=== PATIENT | male | born 1945 | race Caucasian/White ===

== ENCOUNTER 2017-04-22 05:44 | Day surgery (SDC) | payer OTHER, BC ==
[~2017-04-22] VITALS: Ht 160 cm; Wt 73.5 kg
[~2017-04-22 05:44] MED LIST: AMLODIPINE BESY10 MG PO; ATORVASTATIN CA40 MG PO; AZITHROMYCIN500 M1 PO; CALCITRIOL0.25 MCG PO; CARVEDILOL12.5 MG PO; COREG12.5 M1 PO; DIVALPROEX SOD500 MG PO; HUMALOG MI100 UNIT/5 SQ; JANUVIA100 MG; KLONOPIN0.5 M1 PO; LANTUS 10100 UNITS/ SC; LANTUS 3 M100 UNITS1 SC; LASIX20 MG PO; LASIX40 MG PO; LEVEMIR FL100 UNIT/1 SC; LEVOTHYROXINE25 MCG PO; LIPITOR20 MG PO; LIPITOR40 MG; LIPITOR40 MG PO; LISINOPRIL30 MG PO; LISINOPRIL5 MG; LORAZEPAM0.5 MG PO; LOW DOSE ASPIRI81 M1 PO; NEPHRO-VITE,1 TABLET PO; NORVASC5 MG PO; NOVOLOG 10100 UNITS/ SC; NOVOLOG PE100 UNITS/ SC; PROAIR HFA8.5 GM IH; STOOL SOFTENER100 MG PO; ULTRAM50 MG PO; VITAMIN D-32000 UNI1 PO; VITAMIN D32000 UNIT PO; ZESTRIL40 MG PO
[2017-04-22 07:58] LABS: POINT-OF-CARE METER ID UU13113696
[2017-04-22 09:09] LABS: METH RESISTANT S AUREUS PCR NEGATIVE (NEGATIVE)
[2017-04-22 09:11] LABS: PROBE CHECK PASS; SPECIMEN PROCESSING CONTROL PASS
== END 2017-04-22 10:10 | disposition home or self-care (01) ==
LOC: CATH 05:44
PROVIDERS: Surgery
DX: T82.858A Stenosis of other vascular prosthetic devices, implants and grafts, initial encounter (principal); Z79.82 Long term (current) use of aspirin; I12.0 Hypertensive chronic kidney disease with stage 5 chronic kidney disease or end stage renal disease; N18.6 End stage renal disease; Z99.2 Dependence on renal dialysis; E78.00 Pure hypercholesterolemia, unspecified; M19.90 Unspecified osteoarthritis, unspecified site
CPT/HCPCS: 82948; 87641; C1725; C1769; C1894; J1644; J2250; J3010

== ENCOUNTER 2018-02-05 16:28 | Inpatient (IN) | payer OTHER, BC ==
[~2018-02-05] VITALS: Ht 162.6 cm; Wt 78.8 kg
[2018-02-05 16:40] LABS: COMMENTS - BLOOD GASES A+C+; DEVICE MASK VENT; FI02 100 %; PRES. SUPPORT 15 CM/H2O; SITE RR; TOTAL RESP RATE 55 resp/min
[2018-02-05 16:41] LABS: PEEP 7 CM/H20
[2018-02-05 16:42] LABS: BASE EXCESS 1.5 mEq/L (-3 to +3); BICARBONATE 25.9 mEq/L (22-26); CARBOXY HGB 1.6 % (0-5); METHEMOGLOBIN 0.9 % (0-1.5); PCO2 39 mm Hg (35-45); PO2 460 mm Hg (80-100); pH 7.43 (7.35-7.45)
[2018-02-05 17:22] LABS: HEMATOCRIT 30.9 % (38.0-50.0); HEMOGLOBIN 10.2 G/DL (12.5-16.6); MCH 31.5 PG (29.0-34.0); MCV 95.4 FL (86-99); PLATELET COUNT 347 K/uL (156-360); RBC DIS.WIDTH-CV 15.8 % (11.8-14.6); RBC DIS.WIDTH-SD 55.4 % (39-53); RED BLOOD COUNT 3.24 M/uL (4.00-5.50); WHITE BLOOD COUNT 17.6 K/uL (4.1-10.2)
[2018-02-05 17:31] LABS: INTER. NORMALIZED RATIO 1.2
[2018-02-05 17:34] LABS: PTT 24.8 SEC (25-37)
[2018-02-05 17:36] LABS: ALBUMIN 3.7 g/dL (3.2-4.8); CHLORIDE 98 mEq/L (99-109); POTASSIUM 4.7 mEq/L (3.7-5.4); SODIUM 142 mEq/L (136-147)
[2018-02-05 17:38] LABS: GLUCOSE 273 mg/dL (70-99); TOTAL PROTEIN 7.4 g/dL (6.4-8.3)
[2018-02-05 17:40] LABS: TOTAL BILIRUBIN 0.6 mg/dL (0.0-1.0)
[2018-02-05 17:42] LABS: ALKALINE PHOSPHATASE 85 IU/L (3-129); GFR ESTIMATE (CALCULATED) 22 mL/min/ (58.99-99999)
[2018-02-05 17:43] LABS: UREA NITROGEN (BUN) 15 mg/dL (9-23)
[2018-02-05 17:44] LABS: AST (GOT) 20 IU/L (2-34)
[2018-02-05 17:45] LABS: ALT (GPT) 13 IU/L (3-49); TROP-I INTERPRETATION NEGATIVE; TROPONIN-I 0.03 ng/mL (0.0-0.30)
[2018-02-05 18:21] LABS: VALPROIC ACID (DEPAKOTE) 14.4 MCG/ML (50-100)
[2018-02-05] MEDS ORDERED: RENVELA800 MG PO (19:07)
[2018-02-05] MEDS ORDERED: LEVEMIR FL100 UNIT/1 SC ×2 (19:08→19:10)
[2018-02-05] MEDS ORDERED: FUROSEMIDE40 MG PO (19:08)
[2018-02-05 21:00] VITALS: BP 116/78
[2018-02-05 21:01] VITALS: BP 129/70
[2018-02-05 22:00] VITALS: BP 100/60
[2018-02-05 23:00] VITALS: BP 136/61
[2018-02-06] VITALS (24 sets, daily range): BP systolic 84–151; BP diastolic 42–75
[2018-02-06 11:30] LABS: HEMATOCRIT 24.2 % (38.0-50.0); HEMOGLOBIN 7.9 G/DL (12.5-16.6); MCH 31.3 PG (29.0-34.0); MCHC 32.6 G/DL (30.0-36.0); RBC DIS.WIDTH-CV 16.2 % (11.8-14.6); RBC DIS.WIDTH-SD 57.3 % (39-53); RED BLOOD COUNT 2.52 M/uL (4.00-5.50); WHITE BLOOD COUNT 13.3 K/uL (4.1-10.2)
[2018-02-06 11:31] LABS: PLATELET COUNT 218 K/uL (156-360)
[2018-02-06 11:34] LABS: CHLORIDE 103 mEq/L (99-109); POTASSIUM 5.5 mEq/L (3.7-5.4); SODIUM 144 mEq/L (136-147)
[2018-02-06 11:36] LABS: GLUCOSE 154 mg/dL (70-99)
[2018-02-06 11:45] LABS: GFR ESTIMATE (CALCULATED) 12 mL/min/ (58.99-99999); UREA NITROGEN (BUN) 36 mg/dL (9-23)
[2018-02-06 14:52] LABS: INTER. NORMALIZED RATIO 1.4
[2018-02-06 14:55] LABS: PTT 28.2 SEC (25-37)
[2018-02-07] VITALS (24 sets, daily range): BP systolic 86–137; BP diastolic 44–74
[2018-02-07 03:00] LABS: HEMATOCRIT 24.9 % (38.0-50.0); HEMOGLOBIN 7.9 G/DL (12.5-16.6); MCH 30.7 PG (29.0-34.0); MCHC 31.7 G/DL (30.0-36.0); MCV 96.9 FL (86-99); PLATELET COUNT 259 K/uL (156-360); RBC DIS.WIDTH-CV 16.2 % (11.8-14.6); RBC DIS.WIDTH-SD 57.7 % (39-53); RED BLOOD COUNT 2.57 M/uL (4.00-5.50); WHITE BLOOD COUNT 12.9 K/uL (4.1-10.2)
[2018-02-07 03:26] LABS: CHLORIDE 104 mEq/L (99-109); POTASSIUM 5.9 mEq/L (3.7-5.4); SODIUM 144 mEq/L (136-147)
[2018-02-07 03:27] LABS: GLUCOSE 179 mg/dL (70-99)
[2018-02-07 03:31] LABS: GFR ESTIMATE (CALCULATED) 9 mL/min/ (58.99-99999)
[2018-02-07 03:32] LABS: UREA NITROGEN (BUN) 52 mg/dL (9-23)
[2018-02-07 03:33] LABS: CREATININE 6.3 mg/dL (0.6-1.3)
[2018-02-08] VITALS (21 sets, daily range): BP systolic 82–166; BP diastolic 44–80
[2018-02-08 14:31] LABS: BASE EXCESS 6.5 mEq/L (-3 to +3); BICARBONATE 31.8 mEq/L (22-26); CARBOXY HGB 0.9 % (0-5); COMMENTS - BLOOD GASES A+C+; DEVICE N/V VENT; METHEMOGLOBIN 0.8 % (0-1.5); PCO2 49 mm Hg (35-45); PO2 116 mm Hg (80-100); SITE RR; pH 7.42 (7.35-7.45)
[2018-02-08 14:32] LABS: FI02 80 %; MECHANICAL RATE 6 resp/min; MODE N/V SIMV; PEEP 5 CM/H20; PRES. SUPPORT 22 CM/H2O; TIDAL VOLUME 450 ML; TOTAL RESP RATE 40 resp/min
[2018-02-09] VITALS (19 sets, daily range): BP systolic 94–121; BP diastolic 50–72
[2018-02-09 05:23] LABS: BASOPHIL (%) 0.5 % (0-1); BASOPHIL COUNT 0.1 K/uL (0-0.1); EOSINOPHIL (%) 0.2 % (0-5); HEMATOCRIT 23.2 % (38.0-50.0); HEMOGLOBIN 7.4 G/DL (12.5-16.6); IMMATURE GRANULOCYTE (%) 0.9 % (0.0-0.7); LYMPHOCYTE (%) 8.8 % (15-42); LYMPHOCYTE COUNT 0.9 K/uL (1.0-2.8); MCH 30.3 PG (29.0-34.0); MCHC 31.9 G/DL (30.0-36.0); MCV 95.1 FL (86-99); MONOCYTE (%) 10.4 % (3-12); NEUTROPHIL (%) 79.2 % (45-76); NEUTROPHIL COUNT 7.6 K/uL (1.8-6.4); PLATELET COUNT 295 K/uL (156-360); RBC DIS.WIDTH-CV 16.1 % (11.8-14.6); RBC DIS.WIDTH-SD 56.2 % (39-53); RED BLOOD COUNT 2.44 M/uL (4.00-5.50); WHITE BLOOD COUNT 9.6 K/uL (4.1-10.2)
[2018-02-09 05:54] LABS: CHLORIDE 94 MEQ/L (99-109); CREATININE 5.5 MG/DL (0.6-1.3); GFR ESTIMATE (CALCULATED) 11 mL/min/ (58.99-99999); GLUCOSE 259 mg/dL (70-99); SODIUM 141 MEQ/L (136-147); UREA NITROGEN (BUN) 42 mg/dL (9-23)
[2018-02-09 06:20] LABS: POTASSIUM 4.4 MEQ/L (3.7-5.4)
[2018-02-09 10:29] LABS: HEPATITIS B SURFACE ANTIGEN Nonreactive
== END 2018-02-10 00:05 | DRG 871 ==
LOC: EME 16:28 → 4WEST 18:51 → EDOF 18:51 → ENRESERV 18:54 → 4WEST 20:42 → ENRESERV 02-09 19:03 → CANRESERV 02-09 19:03 → ENRESERV 02-09 19:39 → 5EAST 02-09 21:13
PROVIDERS: Emergency Medicine; Internal Medicine Nephrology; Internal Medicine Pulmonary Disease
DX: A41.9 Sepsis, unspecified organism (principal); J96.01 Acute respiratory failure with hypoxia; R65.20 Severe sepsis without septic shock; Z99.2 Dependence on renal dialysis; I13.2 Hypertensive heart and chronic kidney disease with heart failure and with stage 5 chronic kidney disease, or end stage renal disease; N17.9 Acute kidney failure, unspecified; N18.6 End stage renal disease; E11.22 Type 2 diabetes mellitus with diabetic chronic kidney disease; E87.2 Acidosis; I50.9 Heart failure, unspecified; I48.0 Paroxysmal atrial fibrillation; E87.5 Hyperkalemia; I35.0 Nonrheumatic aortic (valve) stenosis; E78.5 Hyperlipidemia, unspecified; G40.909 Epilepsy, unspecified, not intractable, without status epilepticus; D63.1 Anemia in chronic kidney disease; Z79.4 Long term (current) use of insulin; Z51.5 Encounter for palliative care; Z86.73 Personal history of transient ischemic attack (TIA), and cerebral infarction without residual deficits; F03.90 Unspecified dementia, unspecified severity, without behavioral disturbance, psychotic disturbance, mood disturbance, and anxiety; I16.1 Hypertensive emergency
CPT/HCPCS: 31720; 36600; 71045; 80048; 80053; 80164; 81003; 82948; 83605; 83880; 84484; 85025; 85027; 85610; 85730; 87040; 87086; 87340; 87641; 93005; 93970; 94002; 94003; 94640; 94760; 94799; 99281; 99285; J1630; J1644; J1815; J2060; J2270; J2543; J3010; J3486; J7050; S0028